=== PATIENT | male | born 1950 | race Caucasian/White ===

== ENCOUNTER 2018-09-27 15:07 | Outpatient (CLI) | payer BC, SELFPAY ==
--- NOTE | 2018-09-27 15:00 | DI.RAD_ITS ---
SYMPTOMS/DIAGNOSIS: CHEST PAIN X 6 WEEKS PA AND LATERAL CHEST: Comparison is made with June,. The heart size is normal. The aorta is tortuous. There are mild fibrotic changes. No infiltrate, effusion, pneumothorax or mass is seen. No thoracic compression fractures are identified. IMPRESSION: No acute abnormality.
== END 2018-09-27 15:27 ==
PROVIDERS: PCP General Practice; Visit Provider General Practice
DX: R07.9 Chest pain, unspecified (principal)
CPT/HCPCS: 71046

== ENCOUNTER 2019-02-20 11:10 | Outpatient (CLI) | payer BC, SELFPAY ==
[2019-02-20 12:12] LABS: Troponin I < 0.05 ng/Ml (<0.06)
== END 2019-02-20 11:30 ==
PROVIDERS: PCP General Practice; Visit Provider General Practice
DX: R07.9 Chest pain, unspecified (principal)
CPT/HCPCS: 36415; 84484

== ENCOUNTER 2019-04-28 11:25 | Outpatient (CLI) | payer BC, SELFPAY ==
[2019-04-28 12:39] LABS: Mean Corp. HGB Concentration 32.7 g/dL (32.0-36.0); Mean Corpuscular Hemoglobin 30.6 pg (27.0-33.0); Mean Corpuscular Volume 93.7 fL (80-95); Mean Platelet Volume 10.6 fL (8.0-11.0); Platelet Count 197 x1000/uL (130-400); RBC 5.55 m/cumm (4.50-6.00); RBC Distribution Width 14.5 % (11.8-14.1); White Blood Cell Count 5.81 k/cumm (4.4-10.8)
[2019-04-28 13:12] LABS: ALT 25 U/L (16-63); AST 19 U/L (15-37); Albumin 3.9 g/dL (3.4-5.0); Alkaline Phosphatase 81 U/L (46-116); Anion Gap 9.7 mmol/L (3-11); BUN 14 mg/dL (7-18); Bilirubin, Total 1.8 mg/dL (0.2-1.0); CO2 26.3 mmol/L (21.0-32.0); CREATININE 1.11 mg/dL (0.70-1.30); Calcium 8.5 mg/dL (8.5-10.1); Calculated LDL 142 mg/dL (<100); Chloride 105 mmol/L (98-107); Cholesterol 202 mg/dL (<200); Glucose 89 mg/dL (74-106); HDL Cholesterol 40 mg/dL (40-60); Potassium 4.4 mmol/L (3.5-5.1); Sodium 141 mmol/L (136-145); TSH (W/Ref FT4) 1.19 uIU/mL (0.36-3.74); Triglyceride 104 mg/dL (<150)
== END 2019-04-28 11:45 ==
PROVIDERS: PCP Family Medicine; Visit Provider Family Medicine
DX: E78.5 Hyperlipidemia, unspecified (principal); R07.9 Chest pain, unspecified
CPT/HCPCS: 36415; 80053; 80061; 85027; 84443

== ENCOUNTER 2021-03-16 03:24 | Outpatient (CLI) | payer MEDICARE, SELFPAY ==
[2021-03-16 11:19] LABS: Anion Gap 5.9 mmol/L (3-11); BUN 15 mg/dL (7-18); CO2 32.1 mmol/L (21.0-32.0); CREATININE 1.2 mg/dL (0.70-1.30); Calcium 8.7 mg/dL (8.5-10.1); Calculated LDL 72 mg/dL (<100); Chloride 104 mmol/L (98-107); Cholesterol 136 mg/dL (<200); Estimated GFR 59.86 (mL/min/1.73m2); Glucose 95 mg/dL (74-106); HDL Cholesterol 44 mg/dL (40-60); Potassium 3.7 mmol/L (3.5-5.1); Sodium 142 mmol/L (136-145); Triglyceride 102 mg/dL (<150)
[2021-03-16 11:41] LABS: NT-proBNP 29 pg/mL (<300)
== END 2021-03-16 03:25 | disposition home or self-care (01) ==
LOC: LBO 03:24
PROVIDERS: PCP Family Medicine; Visit Provider Family Medicine
DX: E78.5 Hyperlipidemia, unspecified (principal); Z00.00 Encounter for general adult medical examination without abnormal findings; I10 Essential (primary) hypertension; I50.30 Unspecified diastolic (congestive) heart failure
CPT/HCPCS: 36415; 80048; 80061; 83880

== ENCOUNTER 2021-10-18 01:45 | Outpatient (CLI) | payer MEDICARE, SELFPAY ==
[2021-10-18 13:44] LABS: Anion Gap 6.3 mmol/L (3-11); BUN 14 mg/dL (7-18); CO2 28.7 mmol/L (21.0-32.0); CREATININE 1.2 mg/dL (0.70-1.30); Calcium 8.5 mg/dL (8.5-10.1); Chloride 106 mmol/L (98-107); Estimated GFR 59.68 (mL/min/1.73m2); Glucose 96 mg/dL (74-106); Potassium 4.3 mmol/L (3.5-5.1); Sodium 141 mmol/L (136-145)
== END 2021-10-18 01:46 | disposition home or self-care (01) ==
LOC: LBO 01:46
PROVIDERS: PCP Family Medicine; Visit Provider Family Medicine
DX: Z00.00 Encounter for general adult medical examination without abnormal findings (principal); I10 Essential (primary) hypertension
CPT/HCPCS: 36415; 80048

== ENCOUNTER 2022-02-10 14:54 | Outpatient (CLI) | payer MEDICARE, SELFPAY ==
--- NOTE | 2022-02-10 14:45 | RT.EKG_ITS ---
APPROVED REPORT Exam: Resting ECG Reason for Exam: chest pain Patient Location: O HR:67 bpm ECG Measurements Heart Rate 67 AXIS IN 160 P 20 QRSd 155 QRS 49 QT 420 T 27 QTc 444 Conclusion Sinus rhythm...normal P axis, V-rate 50- 99 Right bundle branch block...QRSd>120, terminal axis(90,270)
== END 2022-02-10 14:55 | disposition home or self-care (01) ==
LOC: DI.CM 14:54
PROVIDERS: PCP Family Medicine; Visit Provider Family Medicine
DX: R07.89 Other chest pain (principal); I45.10 Unspecified right bundle-branch block
CPT/HCPCS: 93010

== ENCOUNTER 2022-11-07 20:19 | Outpatient (REF) | payer MEDICARE, OTHER, SELFPAY ==
[2022-11-07 21:24] LABS: BUN 17 mg/dL (7-18); CREATININE 1.5 mg/dL (0.70-1.30); Calcium 8.9 mg/dL (8.5-10.1); Chloride 102 mmol/L (98-107); Estimated GFR 49.16 (mL/min/1.73m2); Glucose 119 mg/dL (74-106); Potassium 4.4 mmol/L (3.5-5.1); Sodium 139 mmol/L (136-145)
== END 2022-11-07 20:20 | disposition home or self-care (01) ==
LOC: LBN 20:19
PROVIDERS: PCP Family Medicine; Visit Provider Family Medicine
DX: I10 Essential (primary) hypertension (principal)
CPT/HCPCS: 80048

== ENCOUNTER → 2023-06-20 02:19 | Outpatient (CLI) | payer MEDICARE, OTHER, SELFPAY ==
--- NOTE | 2023-06-20 13:37 | DI.RAD_ITS ---
Exam(s) XR SHOULDER RT COMPLETE 2+V EXAM: XR SHOULDER RT COMPLETE 2+V CLINICAL HISTORY: right shoulder pain since fall,m25.511. TECHNIQUE: 2D digital imaging was performed. Five views. COMPARISON: No exams were available for comparison FINDINGS: BONES: No acute fracture is present. No bony destructive lesion is seen. JOINTS: No dislocation present. Spurring at the inferior AC joint. Glenohumeral joint space is main tained. There is some spurring with irregularity at the glenoid. SOFT TISSUE: Normal. IMPRESSION: Degenerative changes of the AC joint and glenohumeral joint. DATA REPOSITORY: RADIATION DOSE DELIVERED:
== END ==
PROVIDERS: PCP Family Medicine; Visit Provider Family Medicine
DX: G89.11 Acute pain due to trauma; M19.011 Primary osteoarthritis, right shoulder
CPT/HCPCS: 73030

== ENCOUNTER → 2023-10-03 13:43 | Outpatient (BNVA) | payer MEDICARE, OTHER, SELFPAY | PROVIDERS: PCP Family Medicine; Referring Provider Family Medicine; Visit Provider Student in an Organized Health Care Education/Training Program | DX: M12.811 Other specific arthropathies, not elsewhere classified, right shoulder (principal) | CPT/HCPCS: 99203 ==

== ENCOUNTER 2024-02-18 03:07 | Outpatient (CLI) | payer MEDICARE, OTHER, SELFPAY ==
[2024-02-18 14:47] LABS: Bilirubin Negative (Negative); Blood Negative (Negative); Clarity Clear (Clear); Glucose Negative (Negative); Ketones Negative (Negative); Leukocyte Esterase Negative (Negative); Nitrite Negative (Negative)
[2024-02-18 14:48] LABS: Abs Immature Grans 0.03 10^3/uL (0.0-0.06); Absolute Basophil Count 0.05 10^3/uL (0.0-0.2); Absolute Eosinophil Count 0.23 10^3/uL (0.0-0.7); Absolute Lymphocyte Count 1.23 10^3/uL (1.2-3.4); Absolute Monocyte Count 0.82 10^3/uL (0.1-0.8); Absolute Neutrophil Count 3.77 10^3/uL (1.2-6.7); Basophils % 0.8 %; Eosinophils % 3.8 %; HCT 52.5 % (40.0-50.0); HGB 17.1 g/dL (13.5-17.5); Immature Grans % 0.5 %; Lymphocytes % 20.1 %; MCH 29.5 pg (27.0-33.0); MCHC 32.6 % (32.0-36.0); MCV 91 fL (80-95); MPV 10.7 fL (8.0-11.0); Monocytes % 13.4 %; Neutrophils % 61.4 %; Platelet Count 201 10^3/uL (130-400); RBC 5.79 10^6/uL (4.36-5.78); RDW 14.3 % (11.8-14.1); RDW-SD 47.2 fL; WBC 6.13 10^3/uL (4.4-10.8)
[2024-02-18 15:04] LABS: Calcium 8.7 mg/dL (8.5-10.1); Glucose 96 mg/dL (74-106)
[2024-02-18 15:05] LABS: ALT 33 U/L (16-63); AST 33 U/L (15-37); Albumin 3.8 g/dL (3.4-5.0); Alkaline Phosphatase 107 U/L (46-116); Anion Gap 8.1 mmol/L (3-11); BUN 13 mg/dL (7-18); Bilirubin, Total 2.84 mg/dL (0.2-1.0); CO2 28.9 mmol/L (21.0-32.0); CREATININE 1.3 mg/dL (0.70-1.30); Chloride 109 mmol/L (98-107); Estimated GFR 58.01 (mL/min/1.73m2); Potassium 4.3 mmol/L (3.5-5.1); Sodium 146 mmol/L (136-145); Total Protein 7.7 g/dL (6.4-8.2)
[2024-02-18 15:12] LABS: Bacteria Rare HPF (Negative); C & S Indicated? No; Casts Negative LPF (Negative); Crystals Negative HPF (Negative); Epithelial Cells Negative HPF (Negative); Mucus Trace (Negative); Other Cells Negative (Negative); RBC Negative HPF (0-2); WBC Negative HPF (0-5)
== END 2024-02-18 03:08 | disposition home or self-care (01) ==
PROVIDERS: PCP Family Medicine; Visit Provider Family Medicine
DX: N17.9 Acute kidney failure, unspecified; Z51.81 Encounter for therapeutic drug level monitoring
CPT/HCPCS: 36415; 80053; 81003; 81015; 85025

== ENCOUNTER 2024-02-19 16:23 | Emergency (ER) | payer MEDICARE, OTHER, SELFPAY ==
[2024-02-19 16:24] VITALS: BP 147/79; PULSE 83; RESP 16; TEMP 36.7; O2SAT 93
--- NOTE | 2024-02-19 16:36 | W.ED.GENAD ---
Discharge Plan Disposition Patient Disposition: Home Discharge Details Clinical Impression: Bitten by squirrel Primary Care Provider: Emily Hollins ED Provider: Mandy Mackenzie Home Meds and New Rx's Prescriptions: Continued nitroglycerin 0.4 mg tablet, sublingual 0.4 mg sublingual Q5M PRN (Reason: chest pain) Qty: 50 3RF Rx Instructions: do not exceed 3 doses per episode pregabalin 300 mg capsule 300 mg PO BID Qty: 60 5RF doxycycline hyclate 100 mg capsule 100 mg PO BID Qty: 14 0RF Rx Instructions: Avoid sun exposure. Take with meal. Take 1 pill every 12 hours x 7 days metronidazole 500 mg tablet 500 mg PO Q8H 7 Days Qty: 21 0RF amlodipine 5 mg tablet 5 mg PO DAILY Qty: 90 3RF losartan 25 mg tablet 25 mg PO DAILY Qty: 90 3RF clonazepam 0.5 mg tablet 0.75 mg PO BID Qty: 90 5RF clomipramine 25 mg capsule 75 mg PO HS Qty: 270 3RF atorvastatin 80 mg tablet 80 mg PO DAILY Qty: 90 3RF Discharge Instructions Instructions: Animal Bites ED Additional Instructions: Please follow-up with your primary care provider in the next week or so for reassessment if you have any questions or concerns. According to the [place] [facility], there is no recorded transmission of rabies by squirrels. This is considered a very low risk bite for rabies transmission, so postexposure prophylaxis is not recommended at this time. Keep your wound clean and dry, washing daily antibacterial soap and water. Cover with a bandage. Keep an eye out for signs of infection such as redness, swelling, pain, pus drainage. If you notice any of these please seek care immediately, as indicate need for antibiotics. Discharge Data Discharge Date/Time-TO BE ENTERED AT DEPARTURE: 02/19/24 17:54 HPI General Date/Time Provider Initiated Documentation: 02/19/24 16:25. HPI Narrative: Ilia is a 73year old male who presents to the emergency department today for evaluation of squirrel bite. He reports that last night a squirrel got into his home and he attempted to remove it with bare hands. The squirrel bit him on the tip of his left index finger, drawing blood. He reports that the squirrel was acting normal, no unusual behavior foaming at mouth. He was seen at [facility] and advised to come to the emergency department for rabies prophylaxis. He says he has been feeling well, denies fever/chills, general malaise, body aches, redness/swelling/pus drainage from the wound. No active bleeding from the wound at this time.. Past medical history is significant for coronary artery disease, denies history of immunocompromise. No previous history of rabies prophylaxis or exposure. The glen is still in his home. Physical exam reassuring. Ilia is alert and oriented, no acute distress. Easy work of breathing, able to speak in complete sentences. He does have a small puncture wound noted to the radial aspect of his left index finger, no active bleeding. Full painless range of motion of hand. Low suspicion for rabies based on [facility] [place] website, as small mammals like squirrels are almost never found to be infected with rabies so usually do not need to be tested and almost never require postexposure prophylaxis. I did place a call to the real estate inspector. Discussed case with Mindi, nurse at [place] [facility]. She confirms that squirrels are very low risk of transmission, no postexposure prophylaxis recommended at this time. Biting is considered a normal response to humans attempting to touch squirrels, so this is not a concerning behavior. She does confirm that this is a reportable bite, Gayatri decision unit rn to file the report with the state as needed. I did review the data from the health [place]gov website, there are no reported instances of rabies transmission to humans by squirrels during the time period of 4106-5921. Discussed recommendations with patient, I did offer to him rabies prophylaxis if he felt that he was very anxious about this and needed to be treated. He reports that the squirrel did appear very appropriate, no behavior change or foaming at mouth. Reviewed discharge instructions with patient, including wound care and red flags indicating need for return to emergency care Related Data Home Medications ?Medication ?Instructions ?Recorded ?Confirmed nitroglycerin 0.4 mg sublingual 0.4 mg sublingual Q5M PRN chest 10/21/21 02/19/24 tablet pain #50 tabs amlodipine 5 mg tablet 5 mg PO DAILY #90 tabs 03/06/23 02/19/24 losartan 25 mg tablet 25 mg PO DAILY #90 tabs 04/06/23 02/19/24 clonazepam 0.5 mg tablet 0.75 mg (1.5 x 0.5 mg) PO BID #90 11/23/23 02/19/24 tabs pregabalin 300 mg capsule 300 mg PO BID #60 caps 12/14/23 02/19/24 clomipramine 25 mg capsule 75 mg (3 x 25 mg) PO HS #270 caps 01/25/24 02/19/24 atorvastatin 80 mg tablet 80 mg PO DAILY #90 tabs 01/29/24 02/19/24 doxycycline hyclate 100 mg capsule 100 mg PO BID #14 caps 02/19/24 02/19/24 metronidazole 500 mg tablet 500 mg PO Q8H 7 days #21 tabs 02/19/24 02/19/24 Previous Rx's ?Medication ?Instructions ?Recorded nitroglycerin 0.4 mg sublingual 0.4 mg sublingual Q5M PRN chest 10/21/21 tablet pain #50 tabs amlodipine 5 mg tablet 5 mg PO DAILY #90 tabs 03/06/23 losartan 25 mg tablet 25 mg PO DAILY #90 tabs 04/06/23 clonazepam 0.5 mg tablet 0.75 mg (1.5 x 0.5 mg) PO BID #90 11/23/23 tabs pregabalin 300 mg capsule 300 mg PO BID #60 caps 12/14/23 clomipramine 25 mg capsule 75 mg (3 x 25 mg) PO HS #270 caps 01/25/24 atorvastatin 80 mg tablet 80 mg PO DAILY #90 tabs 01/29/24 doxycycline hyclate 100 mg capsule 100 mg PO BID #14 caps 02/19/24 metronidazole 500 mg tablet 500 mg PO Q8H 7 days #21 tabs 02/19/24 Allergies Allergy/AdvReac Type Severity Reaction Status Date / Time Penicillins Allergy Intermediate sob Unverified 02/19/24 16:28 aspirin AdvReac Intermediate SOB Unverified 02/19/24 16:28 General Stated Complaint: AnimalBite JORDIN: 4 Review of Systems Narrative: see HPI Exam Const General: cooperative, healthy appearing, comfortable, no acute distress, well developed and well groomed Nutritional Appearance: average body habitus Orientation: alert and oriented x3 Resp Effort & Inspection: normal respiratory effort and able to speak in complete sentences Extrem Left upper extremity: no joint enlargement and hand Details: normal capillary refill, neuromotor exam normal, neurosensory exam normal, tendon exam normal and puncture wound (to radial aspect of distal index finger, no nailbed damage); no unusual warmth, no swelling, no abrasions, no lacerations and no ecchymosis; no edema Course Vital Signs Vital signs: Vital Signs Temperature 36.7 C 02/19/24 16:24 Pulse 83 02/19/24 16:24 Respiratory Rate 16 02/19/24 16:24 Blood Pressure 147/79 H 02/19/24 16:24 Pulse Oximetry 93 02/19/24 16:24 Temperature 36.7 C 02/19/24 16:24 Temperature Source Tympanic 02/19/24 16:24 Pulse 83 02/19/24 16:24 Respiratory Rate 16 02/19/24 16:24 Blood Pressure 147/79 H 02/19/24 16:24 Pulse Oximetry 93 02/19/24 16:24 Oxygen Delivery Method Room Air 02/19/24 16:24 Oxygen Flow Rate 0 02/19/24 16:24 Medical Decision Making Quality:SDOH Health Related Social Needs: No Data to Display PFSH All Active Problems (Updated 02/19/24 @ 17:05 by Mandy Mccormack) Bitten by squirrel (Acute) Hyperbilirubinemia (Acute) Rotator cuff arthropathy of right shoulder (Acute) Post herpetic neuralgia (Chronic 10/2022) Resistant to treatment - on pregabalin, clomipramine. Anxiety disorder due to general medical condition (Acute) OCD (obsessive compulsive disorder) (Chronic) Managed with clomipramine, clonazepam Lumbar foraminal stenosis (Chronic) Pain Clinic: [facility] [place]; s/p epidural steroid injection. RBBB (right bundle branch block) (Chronic) Exertional chest pain (Chronic) BPH (benign prostatic hyperplasia) (Chronic) Hyperlipidemia (Chronic) Coronary arteriosclerosis (Chronic) 06/2019 catherization with non-obstructive disease with elevated LVEDP. Essential hypertension (Chronic) Medical History Hx of chest pain Asthma Kidney stone history of: 1994 Family History Mother , age 81 Depression Father , age 79 Cancer Depression Sister Depression Sister No problems noted. Brother , age 66 Alcohol abuse Cancer Substance abuse Brother Dementia Brother No problems noted. Daughter No problems noted. Daughter No problems noted. Maternal Grandfather , age 76 No problems noted. 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 Pets and animals: Yes Pets and animals: cat(s) Do you think of yourself as: straight/heterosexual Current gender identity: male and decline to answer What is your relationship status?: How often do you talk on the phone with friends or family?: twice per week How often do you get together with friends or relatives?: once per week How often do you attend gnosticist or jain services?: 4 or more times per year Do you belong to any clubs or organized social groups?: yes Panel score (0-1 are the most socially isolated patients): 4 What type of physical activity do you participate in: walking Duration: > 90 minutes/day Frequency: daily Nelli/Uatsdin: Anabaptism Special nelli needs: No Seatbelt use: sometimes Helmet use: Yes Helmet use: always Drive intox or ride w/intox regional dedicated truck driver: No Additional Social history: Enjoys riding motorcycle.
--- NOTE | 2024-02-19 17:19 | NUR.NOTE ---
animal bite report faxxed to [facility] clerk. health officer notified of report Nursing Note:
[2024-02-19 17:54] VITALS: BP 147/79; PULSE 83; RESP 16; TEMP 36.7; O2SAT 93
== END 2024-02-19 17:54 | disposition home or self-care (01) ==
PROVIDERS: Emergency Provider Nurse Practitioner Family; PCP Family Medicine
DX: S60.471A Other superficial bite of left index finger, initial encounter (principal); W53.21XA Bitten by squirrel, initial encounter; Y93.K9 Activity, other involving animal care; Y92.018 Other place in single-family (private) house as the place of occurrence of the external cause
CPT/HCPCS: 99283

== ENCOUNTER 2024-03-03 01:38 | Outpatient (CLI) | payer MEDICARE, OTHER, SELFPAY ==
--- NOTE | 2024-03-03 06:30 | DI.US_ITS ---
Exam(s) US ABDOMEN LIMITED EXAM: US ABDOMEN LIMITED CLINICAL HISTORY: Hyperbilirubinemia,E80.6 TECHNIQUE: Ultrasound abdomen performed using standard protocol. COMPARISON: CT ABD PELVIS WITH CONTRAST from 08/17/2012 US ABDOMEN ULTRASOUND (P) from 08/19/2012 FINDINGS: There is no ascites evident. LIVER: Liver is hyperechoic indicating steatosis. There no discrete focal hepatic lesions identified . GALLBLADDER/BILIARY: There are multiple shadowing gallstones. Gallbladder wall thickness is upper no rmal. There is no pericholecystic fluid. The common hepatic duct isnot dilated, measuring 5mm at the level of ruben hepatis. PANCREAS: There is no evidence of pancreatic mass nor dilatation of the pancreatic duct. RIGHT KIDNEY:There are multiple benign cysts in the right kidney noted, the largest measuring 4 cm. No solid lesions seen in the right kidney. No calculi evident in the right kidney. No hydronephrosi s. IMPRESSION: 1. Cholelithiasis. There are multiple gallstones in the gallbladder lumen. Gallbladder wall thickn ess is upper normal. The CBD is not dilated. The patient was apparently not tender over the gallbla dder during scanning today. 2. Hepatic steatosis noted. No obvious discrete focal hepatic lesions evident. 3. Benign right kidney cysts measuring up to 4 cm. These do not require further imaging workup. Th ere are no solid right kidney masses. DATA REPOSITORY:
== END 2024-03-03 01:58 ==
LOC: DI 01:38
PROVIDERS: PCP Family Medicine; Visit Provider Family Medicine
DX: K80.00 Calculus of gallbladder with acute cholecystitis without obstruction (principal); K76.0 Fatty (change of) liver, not elsewhere classified
CPT/HCPCS: 76705

== ENCOUNTER 2024-03-25 01:39 | Outpatient (CLI) | payer MEDICARE, OTHER, SELFPAY ==
--- NOTE | 2024-03-25 07:23 | DI.RAD_ITS ---
Exam(s) XR KNEE RT 3V AP,LAT,JC EXAM: XR KNEE RT 3V AP,LAT,JC CLINICAL HISTORY: right knee pain,m25.561. TECHNIQUE: 2D digital imaging was performed. Three views. COMPARISON: CR RIGHT KNEE 3 VIEWS from 11/24/2013 FINDINGS: The exam is limited by overlying clothing. BONES: No acute fracture is present. No bony destructive lesion is seen. JOINTS: There is moderate to severe narrowing of the medial joint space. No significant periarticula r spurring. There is varus angulation at the knee. There is also narrowing of the patellofemoral leandro int with periarticular spurring. No joint effusion is seen. SOFT TISSUE: Normal. IMPRESSION: Advanced degenerative changes of the medial femoral tibial and patellofemoral joints. DATA REPOSITORY: RADIATION DOSE DELIVERED:
== END 2024-03-25 01:59 ==
LOC: DI 01:39
PROVIDERS: PCP Family Medicine; Visit Provider Family Medicine
DX: M25.561 Pain in right knee (principal)
CPT/HCPCS: 73562